=== PATIENT | male | born 1990 | race African-American/Black ===

== ENCOUNTER 2023-10-22 17:53 | Inpatient (IN) | payer OTHER ==
[2023-10-22 18:02] VITALS: BMI 12.9
[2023-10-22] MEDS ORDERED: ACETAMINOPHEN INJECTION 100 ML IVPB ONE (21:47)
[2023-10-22] MEDS: LACTATED RINGERS SOLUTION 1000 ML INFUS.BAG IV ONE (22:25)
[2023-10-22] MEDS: ACETAMINOPHEN 1000 MG/100 ML BAG IVPB ONE (22:25)
[2023-10-22 22:39] LABS: BASO % 0.6 % (0-2.0); EOS % 5.1 % (0-4.5); HEMATOCRIT 31.9 % (35.4-49); HEMOGLOBIN 10.5 GM/dL (11.7-16.9); LYMPH % 5.4 % (8-40); MCH 27.1 pg (25.7-33.7); MCHC 32.8 g/dl (32.0-35.9); MEAN CELL VOLUME 82.6 fl (80-96); MEAN PLT VOLUME 9.3 fl (7.5-11.1); MONO % 6.9 % (3.8-10.2); PLATELET COUNT 229 10^3/uL (134-434); RBC 3.87 M/mm3 (4.00-5.60); RDW 17.6 % (11.9-15.9); WHITE BLOOD COUNT 6.7 K/mm3 (4.0-10.0)
[2023-10-22 22:42] LABS: VENOUS BASE EXCESS 6.4 mmol/L (-2-2); VENOUS PCO2 36.9 mmHg (38-52); VENOUS PH 7.52 (7.310-7.410)
[2023-10-22 22:43] LABS: EPI CELLS 6 /uL (0-25.1); HYALINE CASTS 0 /uL (0-3.1); PH,URINE 8.5 (5.0-8.0); URINE APPEARANCE CLEAR; URINE BACTERIA 7 /uL (0-1359); URINE BILIRUBIN NEGATIVE (NEGATIVE); URINE COLOR YELLOW; URINE GLUCOSE (UA) NEGATIVE (NEGATIVE); URINE KETONE NEGATIVE (NEGATIVE); URINE LEUK ESTERASE NEGATIVE (NEGATIVE); URINE NITRITE NEGATIVE (NEGATIVE); URINE PROTEIN 1+ (NEGATIVE); URINE RBC 14 /uL (0-23.9); URINE UROBILINOGEN 0.2 mg/dL (0.2-1.0); URINE WBC 12 /uL (0-25.8)
[2023-10-22 22:47] LABS: INR 1.26 (0.83-1.09); PROTHROMBIN TIME (PATIENT) 14.6 SEC (9.7-13.0)
[2023-10-22 22:50] LABS: ACTIVATED PTT 33.7 SECONDS (25.2-36.5)
[2023-10-22 23:01] LABS: POTASSIUM 4.5 mmol/L (3.5-5.1)
[2023-10-22 23:02] LABS: CALCIUM 8.9 mg/dL (8.5-10.1)
[2023-10-22 23:03] LABS: ALBUMIN 2.9 g/dl (3.4-5.0); BLOOD UREA NITROGEN 18.1 mg/dL (7-18)
[2023-10-22 23:06] LABS: CREATININE 0.2 mg/dL (0.55-1.3)
[2023-10-22 23:08] LABS: BILIRUBIN,TOTAL 0.4 mg/dL (0.2-1); TOT PROT 7.2 g/dl (6.4-8.2)
[2023-10-22] MEDS ORDERED: VANCOMYCIN 1 GRAM (PRE-DOCKED) 1,000 MG/250 ML BAG IVPB ONE (23:42)
[2023-10-22] MEDS ORDERED: PIPERACILLIN/TAZOB 4.5 GM 4.5 GM/100 ML BAG IVPB ONE (23:42)
[2023-10-22] MEDS: PIPERACILLIN/TAZOB 4.5 GM 4.5 GM in DEXTROSE 5%-WATER 100 ML IVPB ONE (23:56)
[2023-10-23] MEDS: VANCOMYCIN 1,000 MG in DEXTROSE 5%-WATER - 250 ML IVPB ONE (00:20)
[2023-10-23] MEDS: DEXTROSE 5%-NORMAL SALINE 1,000 ML IV SCH ×2 (02:10→17:00)
[2023-10-23] MEDS: morphine CARPU-JECT 2 MG/1 ML DISP.SYRIN IVPUSH ONE (03:56)
[2023-10-23] MEDS ORDERED: ACETAMINOPHEN 1000 MG/100 ML BAG IVPB PRN ×2 (07:15→13:29)
[2023-10-23] MEDS ORDERED: ALBUTEROL SO4 HFA INHALER IH PRN ×2 (07:32→13:29)
[2023-10-23] MEDS ORDERED: ALPRAZolam 0.25 MG TABLET GT PRN (07:32)
[2023-10-23] MEDS ORDERED: ALBUTEROL SO4 2.5/IPRATROPIUM 0.5 INH SOL 3 ML VIAL.NEB. NEB PRN ×2 (07:39→13:29)
[2023-10-23] MEDS ORDERED: BISACODYL 10 MG SUPP.RECT PR PRN ×2 (07:47→13:29)
[2023-10-23] MEDS ORDERED: MAGNESIUM HYDROX 2400MG/30ML ORAL SUSPENSION 30 ML CUP GT PRN ×2 (07:48→13:29)
[2023-10-23] MEDS ORDERED: PIPERACILLIN/TAZOB 3.375 GM 3.375 GM/50 ML BAG IVPB ONE (08:26)
[2023-10-23] MEDS: PIPERACILLIN/TAZOB 3.375 GM 3.375 GM in DEXTROSE 5%-WATER - 50 ML IVPB SCH ×3 (08:30→22:41)
[2023-10-23 08:37] LABS: CHLORIDE 100 mmol/L (98-107); POTASSIUM 4.2 mmol/L (3.5-5.1); SODIUM 134 mmol/L (136-145)
[2023-10-23 08:40] LABS: ALBUMIN 2.8 g/dl (3.4-5.0); ANION GAP 8 mmol/L (4-13); BLOOD UREA NITROGEN 14.6 mg/dL (7-18); CALCIUM 8.9 mg/dL (8.5-10.1); CO2 26 mmol/L (21-32); GLUCOSE,RANDOM 98 mg/dL (74-106); MAGNESIUM 1.5 mg/dL (1.8-2.4)
[2023-10-23 08:43] LABS: CREATININE < 0.2 mg/dL (0.55-1.3); PHOSPHOROUS 3.1 mg/dL (2.5-4.9); SGOT/AST 51 U/L (15-37); SGPT/ALT 83 U/L (13-61)
[2023-10-23 08:44] LABS: EOS % 3.5 % (0-4.5); HEMATOCRIT 32.7 % (35.4-49); HEMOGLOBIN 10.7 GM/dL (11.7-16.9); LYMPH % 9.6 % (8-40); MCHC 32.8 g/dl (32.0-35.9); MEAN CELL VOLUME 82.3 fl (80-96); MEAN PLT VOLUME 9.5 fl (7.5-11.1); MONO % 6.7 % (3.8-10.2); NEUT % 79.2 % (42.8-82.8); PLATELET COUNT 236 10^3/uL (134-434); RBC 3.98 M/mm3 (4.00-5.60); RDW 17.3 % (11.9-15.9); WHITE BLOOD COUNT 5.8 K/mm3 (4.0-10.0)
[2023-10-23 08:45] LABS: BILIRUBIN,TOTAL 0.7 mg/dL (0.2-1); TOT PROT 7.1 g/dl (6.4-8.2)
[2023-10-23 08:46] LABS: ALK PHOS 100 U/L (45-117)
[2023-10-23] MEDS: SODIUM CHLORIDE 1,000 ML IV SCH (08:56)
[2023-10-23] MEDS: BUDESONIDE 0.5 MG/2 ML INH SUSP VIAL NEB SCH ×2 (09:23→20:20)
[2023-10-23] MEDS: VANCOMYCIN/WATER FOR INJ (PEG) 750 MG/150 ML BAG IVPB SCH ×2 (09:26→22:42)
[2023-10-23] MEDS ORDERED: PROPOFOL 20 ML ONE (10:36)
[2023-10-23] MEDS ORDERED: LIDOCAINE HCL/PF 2% SDV 5ML VIAL ONE (10:36)
[2023-10-23] MEDS ORDERED: MIDAZOLAM HCL 2 MG/2 ML SINGLE DOSE VIAL ONE (10:36)
[2023-10-23] MEDS: POLYETHYLENE GLYCOL (HEALTHYLAX) 3350 17 GM PACKET GT SCH ×2 (10:49→21:06)
[2023-10-23] MEDS: MIDODRINE HCL 5 MG TABLET GT SCH ×2 (10:49→18:30)
[2023-10-23] MEDS: ASCORBIC ACID 250 MG TABLET (FP) GT SCH (10:49)
[2023-10-23] MEDS: LORATADINE 10 MG TABLET GT SCH (10:49)
[2023-10-23] MEDS: CARVEDILOL 3.125 MG TABLET (FP) GT SCH ×2 (10:49→22:46)
[2023-10-23] MEDS: SENNOSIDES 8.8 MG/5 ML SYRUP PO SCH ×2 (10:49→21:05)
[2023-10-23] MEDS: ACETYLCYSTEINE 20% 200MG/ML 4 ML VIAL *FOR ORAL / INH USE ONLY IH ONE ×2 (11:17)
[2023-10-23] MEDS ORDERED: LACTATED RINGERS SOLUTION 1,000 ML IV SCH (11:45)
[2023-10-23] MEDS ORDERED: SODIUM CHLORIDE 1,000 ML IV SCH (13:29)
[2023-10-23] MEDS: LACTATED RINGERS SOLUTION 1,000 ML IV SCH (13:30)
[2023-10-23] MEDS: ACETYLCYSTEINE 20% 200MG/ML 4 ML VIAL *FOR ORAL / INH USE ONLY PO ONE ×2 (13:31→22:43)
[2023-10-23] MEDS ORDERED: ALBUTEROL SO4 0.083% IH SOL 2.5 MG/3 ML VIAL.NEB. NEB ONE (17:38)
[2023-10-23] MEDS ORDERED: ACETAMINOPHEN INJECTION 100 ML IVPB ONE (17:44)
[2023-10-23] MEDS: ACETAMINOPHEN 1000 MG/100 ML BAG IVPB ONE (17:52)
[2023-10-23] MEDS: ALBUTEROL SO4 0.083% IH SOL 2.5 MG/3 ML VIAL.NEB. NEB SCH (17:57)
[2023-10-23] MEDS: ACETYLCYSTEINE 20% 200MG/ML 4 ML VIAL *FOR ORAL / INH USE ONLY NEB SCH (17:57)
[2023-10-23] MEDS ORDERED: PIPERACILLIN/TAZOB 3.375 GM 3.375 GM in DEXTROSE 5%-WATER - 50 ML IVPB SCH (18:00)
[2023-10-23] MEDS ORDERED: VANCOMYCIN/WATER FOR INJ (PEG) 750 MG/150 ML BAG IVPB SCH ×2 (18:00)
[2023-10-23] MEDS: ATORVASTATIN CA 20 MG TABLET (FP) GT SCH (21:06)
[2023-10-23] MEDS ORDERED: ATORVASTATIN CA 20 MG TABLET (FP) GT SCH (22:00)
[2023-10-23] MEDS: VANCOMYCIN/WATER FOR INJ (PEG) 1,000 MG/200 ML BAG IVPB SCH (22:20)
[2023-10-23] MEDS: PANTOPRAZOLE SODIUM 40 MG VIAL IVPUSH SCH (22:42)
[2023-10-23] MEDS: CHOLECALCIFEROL (VIT D3) 1,000 UNIT (25 MCG) TABLET GT SCH (22:42)
[2023-10-23] MEDS: ALPRAZolam 0.25 MG TABLET GT PRN (23:57)
[2023-10-24] MEDS: SODIUM CHLORIDE 250 ML IV ONE (01:10)
[2023-10-24] MEDS: LORATADINE 10 MG TABLET GT SCH (10:50)
[2023-10-24] MEDS: ASCORBIC ACID 250 MG TABLET (FP) GT SCH (10:50)
[2023-10-24] MEDS: CHOLECALCIFEROL (VIT D3) 1,000 UNIT (25 MCG) TABLET GT SCH (10:50)
[2023-10-24] MEDS: PANTOPRAZOLE SODIUM 40 MG VIAL IVPUSH SCH (10:53)
[2023-10-24] MEDS: CASPOFUNGIN ACETATE 70 MG in SODIUM CHLORIDE 250 ML IVPB ONE (11:47)
[2023-10-25] MEDS: CASPOFUNGIN ACETATE 50 MG in SODIUM CHLORIDE 250 ML IVPB SCH (10:25)
[2023-10-26] MEDS: PANTOPRAZOLE SODIUM 40 MG VIAL IVPUSH ONE (12:28)
[2023-10-27 09:30] LABS: BASO % 0.9 % (0-2.0); HEMATOCRIT 28.3 % (35.4-49); HEMOGLOBIN 9.1 GM/dL (11.7-16.9); LYMPH % 15.7 % (8-40); MCH 26.9 pg (25.7-33.7); MEAN PLT VOLUME 9.2 fl (7.5-11.1); MONO % 9.1 % (3.8-10.2); NEUT % 57.3 % (42.8-82.8); PLATELET COUNT 211 10^3/uL (134-434); RBC 3.37 M/mm3 (4.00-5.60); RDW 16.9 % (11.9-15.9); WHITE BLOOD COUNT 6.2 K/mm3 (4.0-10.0)
[2023-10-27 09:49] LABS: CHLORIDE 104 mmol/L (98-107); SODIUM 140 mmol/L (136-145)
[2023-10-27 09:53] LABS: BLOOD UREA NITROGEN 13.2 mg/dL (7-18); CALCIUM 8.8 mg/dL (8.5-10.1); GLUCOSE,RANDOM 82 mg/dL (74-106)
[2023-10-27 09:54] LABS: ALBUMIN 2.6 g/dl (3.4-5.0); ANION GAP 6 mmol/L (4-13); CO2 29 mmol/L (21-32)
[2023-10-27 09:56] LABS: SGPT/ALT 61 U/L (13-61)
[2023-10-27 09:57] LABS: CREATININE < 0.2 mg/dL (0.55-1.3); SGOT/AST 39 U/L (15-37)
[2023-10-27 09:58] LABS: BILIRUBIN,TOTAL 0.3 mg/dL (0.2-1); TOT PROT 6.8 g/dl (6.4-8.2)
[2023-10-27 09:59] LABS: ALK PHOS 76 U/L (45-117)
[2023-10-27] MEDS: PANTOPRAZOLE 40 MG TABLET PO SCH (10:03)
[2023-10-28 09:49] VITALS: RESP 20
[2023-10-28 13:47] VITALS: BP 108/62; PULSE 110; TEMP 98.6
== END 2023-10-28 14:30 | DRG 207 ==
LOC: JER 17:53 → JERBED 10-23 00:40 → J5S 10-23 20:18
PROVIDERS: ADMIT Internal Medicine; ATTEND Family Medicine
PROC: 5A1955Z Respiratory Ventilation, Greater than 96 Consecutive Hours (ICD-10-PCS; 2023-10-22)
PROC: 0BJ08ZZ Inspection of Tracheobronchial Tree, Via Natural or Artificial Opening Endoscopic (ICD-10-PCS; 2023-10-23)
PROC: 0B9D8ZZ Drainage of Right Middle Lung Lobe, Via Natural or Artificial Opening Endoscopic (ICD-10-PCS; 2023-10-23)
PROC: 3E1F88Z Irrigation of Respiratory Tract using Irrigating Substance, Via Natural or Artificial Opening Endoscopic (ICD-10-PCS; principal; 2023-10-23 11:30)
DX: J69.0 Pneumonitis due to inhalation of food and vomit (principal); R53.2 Functional quadriplegia; J96.11 Chronic respiratory failure with hypoxia; J98.11 Atelectasis; R64 Cachexia; Z68.1 Body mass index [BMI] 19.9 or less, adult; T17.590A Other foreign object in bronchus causing asphyxiation, initial encounter; J90 Pleural effusion, not elsewhere classified; R00.0 Tachycardia, unspecified; R50.9 Fever, unspecified; R94.31 Abnormal electrocardiogram [ECG] [EKG]; G71.01 Duchenne or Becker muscular dystrophy; B37.9 Candidiasis, unspecified; I12.9 Hypertensive chronic kidney disease with stage 1 through stage 4 chronic kidney disease, or unspecified chronic kidney disease; N18.9 Chronic kidney disease, unspecified; F41.9 Anxiety disorder, unspecified; D64.9 Anemia, unspecified; Z93.1 Gastrostomy status; Z93.0 Tracheostomy status
CPT/HCPCS: 0241U-QW; 36415; 71045-TC-FY; 71250-TC; 80053; 81003; 82803; 82962; 83605; 83735; 84100; 84484; 85025; 85610; 85730; 86850; 86900; 86901; 87040; 87086; 87106; 87186; 93005; 93010; 94002; 94640; 94760; 99285-25; E0186; J0131; J0637